=== PATIENT | male | born 1950 | race Caucasian/White ===

== ENCOUNTER 2020-05-01 09:07 | Emergency (ER) | payer OTHER ==
[~2020-05-01] VITALS: Ht 188 cm; Wt 80.0 kg
[~2020-05-01 09:07] MED LIST: ALLO100T64 PO; ASCO10004 PO; ASPI-515 PO; CHOL400C PO; CINA30TA2 PO; DILT180C32 PO; ENAL10TA PO; MAGN400T36 PO; MYCO500T3 PO; SIMV20TA19 PO; TACR1CAP5 PO
[2020-05-01] MEDS ORDERED: PLEASE ENTER HEIGHT AND WEIGHT MC SCH (09:30)
[2020-05-01] MEDS ORDERED: NEOSPORIN OINT. PKT 1 PACKET ONE (09:30)
[2020-05-01] MEDS ORDERED: SODIUM CHLORIDE FLUSH 10ML SYR IVF ONE (09:30)
[2020-05-01 09:35] LABS: BASOPHILS # (AUTO) 0.02 x10^3/uL (0-0.1); BASOPHILS % (AUTO) 0 % (0-1); EOSINOPHILS # (AUTO) 0.03 x10^3/uL (0-0.4); EOSINOPHILS % (AUTO) 0 % (1-7); LYMPHOCYTES # (AUTO) 0.65 x10^3/uL (1-3.4); LYMPHOCYTES % (AUTO) 7 % (22-44); MD NO; MEAN CORPUSCULAR HEMOGLOBIN 31.3 pg (27.5-34.5); MEAN CORPUSCULAR HGB CONC 32.6 g/dL (33.2-36.2); MEAN CORPUSCULAR VOLUME 96.1 fL (81-97); MEAN PLATELET VOLUME 8.8 fL (7.4-10.4); MONOCYTES # (AUTO) 0.62 x10^3/uL (0.2-0.8); MONOCYTES % (AUTO) 6 % (2-9); NEUTROPHILS # (AUTO) 8.42 x10^3/uL (1.8-6.8); NEUTROPHILS % (AUTO) 86 % (42-75); PLATELET COUNT 139 x10^3/uL (130-400); RED BLOOD COUNT 5.01 x10^6/uL (4.38-5.82); RED CELL DISTRIBUTION WIDTH 12.8 % (9.4-14.8)
--- NOTE | 2020-05-01 09:40 | NUR ---
TO CT VIA [facility]
[2020-05-01 09:48] LABS: ALANINE AMINOTRANSFERASE 31 U/L (12-78); ALBUMIN 3.9 g/dL (3.4-5.0); ANION GAP 7 mmol/L (5-15); CALCIUM 8.8 mg/dL (8.5-10.1); CHLORIDE 114 mmol/L (98-107); CREATININE 1.66 mg/dL (0.7-1.3)
[2020-05-01 09:51] LABS: ALKALINE PHOSPHATASE 187 U/L (45-117); BILIRUBIN,TOTAL 0.5 mg/dL (0.2-1.0); CREATINE KINASE, TOTAL 138 U/L (39-308); TOTAL PROTEIN 7.1 g/dL (6.4-8.2)
[2020-05-01 09:54] LABS: INTERNATIONAL NORMALIZED RATIO 1.02 (0.93-1.1); PROTHROMBIN TIME 10.8 Seconds (9.6-11.5)
--- NOTE | 2020-05-01 10:00 | NUR ---
PT RETURNED FROM CT. MAKES EYE CONTACT, REMAINS NON VERBAL. GRANDDAUGHTER AT BEDSIDE.
[2020-05-01] MEDS ORDERED: OMNIPAQUE 350 MG/ML, 75ML BOTTLE ONE (10:14)
--- NOTE | 2020-05-01 10:52 | NUR ---
PT RESTING WITH EYES CLOSED. GRANDDAUGHTER REMAINS AT BEDSIDE. CONTINUE TO MONITOR
--- NOTE | 2020-05-01 11:06 | NUR ---
RECEIVED REPORT FROM SALLY LEMON.
--- NOTE | 2020-05-01 11:27 | NUR ---
ERP DR. BERGMAN AT BEDSIDE SPEAKING W/ POA. PT RESTING ON MONY. NADN. BROWNINGS.
[2020-05-01 12:27] VITALS: BP 168/97
--- NOTE | 2020-05-01 12:30 | NUR ---
REPORT GIVEN TO ELZA, RECEIVING RN AT [facility]. ALL QUESTIONS ANSWERED. AWAITING PT TRANSPORT.
== END 2020-05-01 12:54 ==
LOC: ED 09:34
DX: I63.9 Cerebral infarction, unspecified (principal); N28.9 Disorder of kidney and ureter, unspecified; G81.90 Hemiplegia, unspecified affecting unspecified side; R29.700 NIHSS score 0; R94.31 Abnormal electrocardiogram [ECG] [EKG]; I48.91 Unspecified atrial fibrillation; E78.5 Hyperlipidemia, unspecified; M10.9 Gout, unspecified
CPT/HCPCS: 36415; 70450; 70496; 70498; 72125; 73130; 80053; 82550; 85025; 85610; 85730; 93005; 99291; Q9967; 80047